=== PATIENT | female | born 1990 | race Two or more races ===

== ENCOUNTER 2017-06-18 10:24 | Emergency (ER) | payer OTHER ==
[~2017-06-18] VITALS: Ht 160 cm; Wt 76.2 kg
[2017-06-18] MEDS ORDERED: URISTAT PO (10:41)
[2017-06-18 10:59] LABS: *BILIRUBIN,URIN NEGATIVE (NEGATIVE); *BLOOD, URINE Trace-intact (NEGATIVE); *CLARITY,URINE CLEAR (CLEAR); *KETONES,URINE NEGATIVE (NEGATIVE); *PROTEIN,URINE 1+ (NEGATIVE); LEUKOCYTE ESTERASE ,URINE 3+ (NEGATIVE); NITRITE, URINE POSITIVE (NEGATIVE); UGLUCOSE TRACE (NEGATIVE)
[2017-06-18 11:02] LABS: *URINE HCG, QUAL NEGATIVE (NEGATIVE)
[2017-06-18 11:10] LABS: *COLOR,URINE DARK YELLOW (YELLOW); BACTERIA,URINE MODERATE /HPF (NONE SEEN); SQUAMOUS EPITHELIAL CELL,UR MODERATE /HPF (NONE SEEN); WBC,URINE 20-50 /HPF (0-3)
--- NOTE | 2017-06-18 11:25 | NUR ---
Patient discharged to home in stable conditon. Written and verbal after care instructions given. Patient verbalizes understanding of instructions.
[2017-06-18 11:28] VITALS: BP 102/72
== END 2017-06-18 11:29 | disposition home or self-care (01) ==
LOC: ER 10:24
DX: N39.0 Urinary tract infection, site not specified (principal); Z79.899 Other long term (current) drug therapy
CPT/HCPCS: 84703; 87086; A4663

== ENCOUNTER 2017-06-20 14:54 | Emergency (ER) | payer OTHER ==
[~2017-06-20] VITALS: Ht 157.5 cm; Wt 90.7 kg
[~2017-06-20 14:54] MED LIST: URISTAT PO
[2017-06-20 15:48] LABS: *BLOOD, URINE Trace-intact (NEGATIVE); *CLARITY,URINE SLIGHTLY CLOUDY (CLEAR); *COLOR,URINE Orange (YELLOW); *KETONES,URINE TRACE (NEGATIVE); *PROTEIN,URINE 1+ (NEGATIVE); LEUKOCYTE ESTERASE ,URINE 3+ (NEGATIVE); NITRITE, URINE POSITIVE (NEGATIVE); PH,URINE 5.5 (5.0-8.0); UGLUCOSE TRACE (NEGATIVE)
[2017-06-20 16:03] LABS: *BILIRUBIN,URIN 1+ (NEGATIVE)
[2017-06-20 16:07] LABS: WBC,URINE 20-50 /HPF (0-3)
[2017-06-20 16:08] LABS: *URINE HCG, QUAL NEGATIVE (NEGATIVE); BACTERIA,URINE MODERATE /HPF (NONE SEEN); SQUAMOUS EPITHELIAL CELL,UR MODERATE /HPF (NONE SEEN); YEAST,URINE FEW /HPF (NONE SEEN)
--- NOTE | 2017-06-20 16:18 | NUR ---
Patient discharged to home in stable conditon. Written and verbal after care instructions given. Patient verbalizes understanding of instructions.
== END 2017-06-20 16:19 | disposition home or self-care (01) ==
LOC: ER 14:55
DX: N39.0 Urinary tract infection, site not specified (principal); Z79.899 Other long term (current) drug therapy
CPT/HCPCS: 84703; A4663

== ENCOUNTER 2017-07-11 20:05 | Emergency (ER) | payer OTHER ==
[~2017-07-11] VITALS: Ht 160 cm; Wt 87.5 kg
--- NOTE | 2017-07-11 20:35 | NUR ---
PT AMBULATED TO ER WITH C/O MIDDLE UPPER ABDOMINAL PAIN FOR 3 DAYS. PT STATES SHE TAKES "OMEPRAZOLE 2 PILLS/DAY" AND IS NOT SURE OF THE DOSE. PT STATES SHE IS "UNABLE TO EAT FOOD BECAUSE IT IRRITATES HER STOMACH." PT STATES THE PAIN IS INTERMITTENT. LAST BM WAS THIS MORNING. RESPIRATIONS EVEN + UNLABORED. NO SOB/CONGESTION NOTED. PT DENIES NAUSEA/VOMITING. NO CHEST PAIN NOTED. VSS. AAOX4. ABLE TO MAKE NEEDS KNOWN. SPEAKS IN COMPLETE SENTENCES. RESPONSIVE TO VERBAL + TACTILE STIMULI. PT RESTING IN BED IN LOWEST POSITION. WHEELS LOCKED. CALL LIGHT WITHIN REACH.
--- NOTE | 2017-07-11 21:02 | NUR ---
HELADIO GONSALES AT BEDSIDE FOR PT EVALUATION.
--- NOTE | 2017-07-11 21:15 | NUR ---
LAB AT BEDSIDE FOR BLOOD DRAW.
--- NOTE | 2017-07-11 21:20 | NUR ---
PT AMBULATED TO RESTROOM WITH STABLE GAIT. VSS. NO DISTRESS NOTED.
--- NOTE | 2017-07-11 21:28 | NUR ---
RADIOLOGY NOTIFIED REGARDING ORDERS. AWAITING SERUM HCG RESULT. WILL CTM PT.
[2017-07-11 21:29] LABS: BASOPHILS % (AUTO) 0.6 % (0.0-2.0); EOSINOPHILS # (AUTO) 0.1 K/uL (0.0-0.7); EOSINOPHILS % (AUTO) 1.6 % (0.0-7.0); HEMATOCRIT 36.2 % (31.2-41.9); HEMOGLOBIN 12.2 g/dL (10.9-14.3); LYMPHOCYTES # (AUTO) 1.9 K/uL (20.0-40.0); LYMPHOCYTES % (AUTO) 22.8 % (20.5-51.5); MEAN CORPUSCULAR HEMOGLOBIN 25.7 uug (24.7-32.8); MEAN CORPUSCULAR HGB CONC 34 g/dL (32.3-35.6); MEAN CORPUSCULAR VOLUME 76.3 fL (75.5-95.3); MONOCYTES # (AUTO) 0.5 K/uL (2.0-10.0); MONOCYTES % (AUTO) 5.4 % (0.0-11.0); NEUTROPHILS # (AUTO) 5.8 K/uL (1.8-8.9); NEUTROPHILS % (AUTO) 69.6 % (38.5-71.5); PLATELET COUNT (AUTO) 296 K/uL (179-408); RED BLOOD CELL COUNT(AUTO) 4.75 MIL/uL (3.63-4.92); WHITE BLOOD COUNT (AUTO) 8.3 K/uL (3.8-11.8)
[2017-07-11 21:32] LABS: *BILIRUBIN,URIN NEGATIVE (NEGATIVE); *BLOOD, URINE Trace-lysed (NEGATIVE); *CLARITY,URINE CLOUDY (CLEAR); *COLOR,URINE YELLOW (YELLOW); *KETONES,URINE NEGATIVE (NEGATIVE); *PROTEIN,URINE 2+ (NEGATIVE); *UROBILINOGEN,URINE 0.2 E.U./dl (NORMAL); LEUKOCYTE ESTERASE ,URINE 3+ (NEGATIVE); NITRITE, URINE NEGATIVE (NEGATIVE); UGLUCOSE NEGATIVE (NEGATIVE)
[2017-07-11 21:35] LABS: CREATININE 0.7 mg/dL (0.6-1.3); POTASSIUM 3.6 mmol/L (3.5-5.1)
[2017-07-11 21:41] LABS: BILIRUBIN,DIRECT 0.1 mg/dL (0.0-0.2); BILIRUBIN,TOTAL 0.3 mg/dL (0.2-1.0); TOTAL PROTEIN, SERUM 8.1 g/dL (6.4-8.2)
--- NOTE | 2017-07-11 21:45 | NUR ---
XRAY AT BEDSIDE. VSS. NO DISTRESS NOTED.
[2017-07-11 21:53] LABS: BACTERIA,URINE MODERATE /HPF (NONE SEEN); SQUAMOUS EPITHELIAL CELL,UR MANY /HPF (NONE SEEN); WBC,URINE 80-100 /HPF (0-3)
--- NOTE | 2017-07-11 22:05 | NUR ---
PT TAKEN TO CT VIA GURNEY ACCOMPANIED BY TRANSPORT. VSS. NO ACUTE DISTRESS.
--- NOTE | 2017-07-11 22:19 | NUR ---
PT BACK FROM CT SCAN. VSS. NO DISTRESS NOTED.
--- NOTE | 2017-07-11 22:37 | NUR ---
PATIENT IN BED, NO ACUTE DISTRESS NOTED. VSS. WILL CONTINUE TO MONITOR PATIENT.
--- NOTE | 2017-07-11 22:52 | NUR ---
Patient discharged to home in stable conditon. Written and verbal after care instructions given. Patient verbalizes understanding of instructions. Patient ambulated from ER with steady gait. No distress noted. All belongings with pt.
[2017-07-11 22:54] VITALS: BP 130/72
== END 2017-07-11 22:55 | disposition home or self-care (01) ==
LOC: ER 20:06
DX: N39.0 Urinary tract infection, site not specified (principal); R16.1 Splenomegaly, not elsewhere classified; Z79.899 Other long term (current) drug therapy
CPT/HCPCS: 36415; 70030-TC; 71045; 83690; 84703; 85025; 85730; 93005; A4663

== ENCOUNTER 2017-08-18 23:53 | Emergency (ER) | payer OTHER ==
[~2017-08-18] VITALS: Ht 160 cm; Wt 87.5 kg
--- NOTE | 2017-08-19 01:08 | NUR ---
PT IN BED. PT IS CALM AND COOPERATIVE. VSS AND WNL. PT REPORT NOT BEING IN PAIN AT THE MOMENT. CURRENTLY AWAITING LAB RESULTS OF UA.
[2017-08-19 01:26] LABS: *BILIRUBIN,URIN NEGATIVE (NEGATIVE); *BLOOD, URINE Trace-intact (NEGATIVE); *CLARITY,URINE SLIGHTLY CLOUDY (CLEAR); *COLOR,URINE YELLOW (YELLOW); *KETONES,URINE 1+ (NEGATIVE); *PROTEIN,URINE TRACE (NEGATIVE); *UROBILINOGEN,URINE 0.2 E.U./dl (NORMAL); LEUKOCYTE ESTERASE ,URINE 1+ (NEGATIVE); NITRITE, URINE NEGATIVE (NEGATIVE); PH,URINE 5.5 (5.0-8.0); UGLUCOSE NEGATIVE (NEGATIVE)
[2017-08-19 01:33] LABS: BACTERIA,URINE FEW /HPF (NONE SEEN); SQUAMOUS EPITHELIAL CELL,UR MODERATE /HPF (NONE SEEN); WBC,URINE 20-50 /HPF (0-3)
[2017-08-19 01:34] LABS: *URINE HCG, QUAL NEGATIVE (NEGATIVE); MUCUS,URINE FEW /LPF (0-FEW)
[2017-08-19] MEDS ORDERED: CEFTRIAXONE 1 G VIAL IM ONE (01:50)
[2017-08-19] MEDS ORDERED: CEFTRIAXONE 1 G VIAL ONE (01:55)
[2017-08-19] MEDS ORDERED: LIDOCAINE HCL 2% 20 ML VIAL ONE (01:56)
[2017-08-19] MEDS ORDERED: LIDOCAINE HCL 1% 20 ML VIAL ONE (01:57)
--- NOTE | 2017-08-19 02:15 | NUR ---
Patient discharged to home in stable conditon. Written and verbal after care instructions given. Patient verbalizes understanding of instructions. Patient able to ambulate unassisted with a steady gait. Patient left with all personal belongings.
[2017-08-19 02:16] VITALS: BP 118/70
== END 2017-08-19 02:15 | disposition home or self-care (01) ==
LOC: ER 23:56
DX: N39.0 Urinary tract infection, site not specified (principal); Z79.899 Other long term (current) drug therapy
CPT/HCPCS: 81001; 84703; 96372; 99284; A4663; J0696; J3490